=== PATIENT | female | born 1945 ===

== ENCOUNTER 2023-07-05 13:26 | Outpatient (RCR) | payer MEDICARE, SELFPAY | END 2023-07-05 23:59 | disposition home or self-care (01) | LOC: RPT 13:26 | PROVIDERS: ATTENDING PHYSICIAN Physician Assistant; FAMILY PHYSICIAN Family Medicine | DX: M54.42 Lumbago with sciatica, left side (principal); Z73.6 Limitation of activities due to disability | CPT/HCPCS: 97010; 97110; 97112; 97140; 97162 ==

== ENCOUNTER 2023-08-05 09:56 | Outpatient (RCR) | payer MEDICARE, SELFPAY | END 2023-08-05 23:59 | disposition home or self-care (01) | LOC: RPT 09:56 | PROVIDERS: ATTENDING PHYSICIAN Physician Assistant; FAMILY PHYSICIAN Family Medicine | DX: M54.42 Lumbago with sciatica, left side (principal); Z73.6 Limitation of activities due to disability | CPT/HCPCS: 97010; 97110; 97140 ==

== ENCOUNTER 2023-08-15 09:51 | Outpatient (RCR) | payer MEDICARE, SELFPAY | END 2023-08-15 13:07 | disposition home or self-care (01) | LOC: RPT 09:51 | PROVIDERS: ATTENDING PHYSICIAN Physician Assistant; FAMILY PHYSICIAN Family Medicine | DX: M54.42 Lumbago with sciatica, left side (principal); Z73.6 Limitation of activities due to disability | CPT/HCPCS: 97010; 97110 ==

== ENCOUNTER 2024-04-01 21:17 | Inpatient (IN) | payer MEDICARE, OTHER, SELFPAY ==
[2024-04-01 16:01] VITALS: BP 121/88
[2024-04-01 16:15] LABS: Hematocrit 40.4 % (37.0-47.0); Hemoglobin 13.6 g/dL (12.0-16.0); Mean Corp Hgb Conc. 33.7 g/dL (33.0-37.0); Mean Corpuscular Hgb 29.5 pg (27.0-31.0); Mean Corpuscular Volume 87.6 fL (81.0-99.0); Mean Platelet Volume 9.5 fL (7.4-10.4); Platelet Count 239 10^3/uL (130-400); Red Blood Cell Count 4.61 10^6/uL (4.20-5.40); Red Cell Dist. Width 12.2 % (11.5-14.5); White Blood Cell Count 15.4 10^3/uL (4.8-10.8)
[2024-04-01 16:27] LABS: ALT (SGPT) 39 U/L (0-35); AST (SGOT) 79 U/L (14-36); Albumin 4.8 g/dl (3.5-5.0); Alkaline Phosphatase 96 U/L (38-126); Blood Urea Nitrogen 18 mg/dl (7-17); Calcium 9.8 mg/dl (8.4-10.2); Carbon Dioxide 29 mmol/L (22-30); Chloride 101 mmol/L (98-107); Glucose 145 mg/dl (70-99); Potassium 3.9 mmol/L (3.5-5.1); Sodium 141 mmol/L (135-145); Total Bilirubin 0.8 mg/dl (0.2-1.3); Total Protein 7.9 g/dl (6.3-8.2); eGFR > 60.00
[2024-04-01 16:28] LABS: % Basophils 0.3 % (0-2); % Eosinophils 0.2 % (0-6); % Immature Granulocytes 0.5 % (0-0.5); % Lymphocytes 6.4 % (20.5-51.1); % Monocytes 7.1 % (1.7-9.3); % Neutrophils 85.5 % (42.2-75.2); Absolute Basophils 0.1 10^3/uL (0-0.2); Absolute Immature Granulocytes 0.1 10^3/uL (0-0.05); Absolute Monocytes 1.1 10^3/uL (0.1-0.6); Absolute Neutrophils 13.1 10^3/uL (1.4-6.5); Nucleated Red Blood Cells % 0 %
[2024-04-01 17:03] LABS: Lipase > 4000 U/L (23-300)
--- NOTE | 2024-04-01 17:32 | ED.GENMED ---
History of Present Illness
General
Chief Complaint: Abdominal Pain
Time Seen by Provider: 04/01/24 17:04
History of Present Illness
History of Present Illness:
78-year-old female presents to the emergency department for evaluation of sudden onset upper abdominal pain beginning earlier today associated with nausea and vomiting. Pain is rated as severe. No diarrhea. No recent fevers or chills. No history
of abdominal surgery. Denies use of NSAIDs or alcohol. History of diet-controlled diabetes
Past History
Past History
ED Past Medical History: NIDDM and Hypothyroidism
ED Past Surgical History: Orthopedic and Other
Social History
Tobacco: Non-smoker
Review of Systems
Review of Systems
Allergies reviewed?: Yes
All Other Systems: ROS reviewed and negative except as documented in HPI and ROS
Phy Exam
Physical Exam
Physical Exam:
GEN: Well appearing, NAD, WDWN
HEENT: Oral mucosa moist, no scleral icterus
Cardiac: Regular rate and rhythm
Lung: No respiratory distress, no tachypnea
Abdomen: Soft, severe diffuse upper abdominal tenderness, no rigidity
MSK: No gross deformity or injuries
Skin: Good color, no pallor or jaundice, no rashes
Neuro: AO x3, moves all extremities freely
Psych: Calm, cooperative
Course
Orders/Labs/Results
Orders:
Orders
04/01/24 16:06
Complete Blood Count/With Diff Urgent
Comprehensive Metabolic Panel Urgent
Lipase Urgent
04/01/24 17:31
CT Abd/Pel (IV only)-DH only Urgent
Comment:
Reason For Exam: pancreatitis
HYDROmorphone [Dilaudid] 0.5 mg IV NOW STA
Lactated Ringers [Lr] 1,000 ml IV BOLUS
Ondansetron Injectable [Zofran] 4 mg IV NOW STA
04/01/24 20:04
HYDROmorphone [Dilaudid] 0.5 mg IV NOW STA
04/01/24 20:47
Admit/Transfer Patient As Directed
Co-Sign Provider:
Level of Care: Inpatient admission
Assign to:: Telemetry
Physician / Group: Dov
Diagnosis: Acute Pancreatitis
Reason for Telemetry: Arrhythmia
Date to Stop Telemetry: 04/04/24
Time to Stop Telemetry: 11:00
Reason for Hospitalization: Acute Pancreatitis
Expected length of stay greater than two midnights?: Yes
ELOS- Estimated Length of Stay in days: 3
I certify the patient meets the requirements for IP care: Yes
US Abdomen Complete/Upper Urgent
Comment:
Reason For Exam: Pancreatitis, RUQ Pain
04/01/24 20:50
Code Status As Directed
Resuscitation Status: Full Code
PRN Pain Medication Management As Directed
May give lesser potent ordered pain med per pt: Yes
preference::
Protocol:: Medication orders for pain may be administered in a
manner that supports deferring to patient preference
when the pt is:
- Requesting an ordered lesser potent pain medication.
Least to most potent pain medications are defined
as: acetaminophen < NSAID < tramadol < opioids
(morphine, oxycodone, hydromorphone).
- Requesting a lesser dose of the same medication IF
ORDERED.
- Requesting a less intrusive route of administration
if both routes are prescribed by the provider (PO <
IV).
04/04/24 11:00
DC Protocol for Telemetry ONCE
Abnormal Lab Results
04/01/24
16:06
WBC 15.4 H 10^3/uL
(4.8-10.8)
Abs Immat Gran (auto) 0.1 H 10^3/uL
(0-0.05)
Absolute Neuts (auto) 13.1 H 10^3/uL
(1.4-6.5)
Absolute Lymphs (auto) 1.0 L 10^3/uL
(1.2-3.4)
Absolute Monos (auto) 1.1 H 10^3/uL
(0.1-0.6)
Neutrophils % 85.5 H %
(42.2-75.2)
Lymphocytes % 6.4 L %
(20.5-51.1)
BUN 18 H mg/dl
(7-17)
Creatinine 0.5 L mg/dL
(0.6-1.0)
Glucose 145 H mg/dl
(70-99)
AST 79 H U/L
(14-36)
ALT 39 H U/L
(0-35)
Lipase > 4000 H* U/L
(23-300)
04/01/24 16:06
04/01/24 16:06
Vital Signs
Initial and Last Documented VS:
Initial Vital Signs
Temp Pulse Resp BP Pulse Ox
97.6 F 98 16 121/88 98
04/01/24 16:01 04/01/24 16:01 04/01/24 16:01 04/01/24 16:01 04/01/24 16:01
Last Documented Vital Signs
Temp Pulse Resp BP Pulse Ox
97.6 F 108 18 125/56 97
04/01/24 16:01 04/01/24 20:39 04/01/24 20:39 04/01/24 19:00 04/01/24 20:39
MDM/Problems Addressed
MDM/Problems Addressed:
Patient found to have acute pancreatitis, denies alcohol use. Transaminases only marginally elevated, unclear if this could represent a gallstone pancreatitis. Will admit to the hospitalist service for further management
*Critical Care Note
Total Time (30-74mins, 75-104mins- exclusive of procedures): Not Applicable
ED Attending Note
-
Portions of this chart may have been created with voice recognition software.� Occasional wrong word or��sound alike� substitutions may have occurred due to the inherent limitations of voice recognition software.
Discharge Plan
Departure
Patient Disposition: Admit
Date of Disposition: 04/01/24
Time of Disposition: 20:10
Admit to: Med/Surg
Presentation/result/management discussed w/ accepting MD/DO: Hospitalist
Discharge Problem:
Acute pancreatitis
Interventions
Interventions:
*Risk Screen - Suicide Last Done: 04/01/24 16:01
*General Assessment Last Done: 04/01/24 16:01
*Neglect/Abuse Screening Last Done: 04/01/24 18:12
ED- Fall Risk Assessment Last Done: 04/01/24 18:16
*ED COVID-19 Vaccine History Last Done: 04/01/24 16:01
BG-Omezdh-Ctpsaayfoj Assessment Last Done: 04/01/24 18:13
[2024-04-01 17:54] VITALS: BP 159/75
[2024-04-01] MEDS: LR 1000 IV (18:08)
[2024-04-01] MEDS: ZOFRAN 4 MG IV (18:09)
[2024-04-01] MEDS: DILAUDID 0.5 MG IV ×2 (18:09→20:37)
[2024-04-01 18:12] VITALS: BMI 25.4
[2024-04-01 19:00] VITALS: BP 125/56
--- NOTE | 2024-04-01 20:54 | HPS.HSE ---
Addendum entered and electronically signed by Kieran Monae DO 04/02/24 00:17:
US Abdomen shows no evidence of acute cholecystitis, GB wall thickening, pericholecystic fluid, etc.
Observe off of abx. Continue treatment of acute pancreatitis as noted.
GI evaluation for additional recommendations.
Original Note:
Family Physician
-
Family Physician: Jose Angel Banks
Chief Complaint
-
Abd Pain, N/V
History of Present Illness
Patient is a 78y F with PMH significant for gastroparesis, DM and hypothyroidism who presents to ED complaining of abdominal pain and N/V. Patient states that she noted RUQ abdominal pain early this AM. This progressed throughout the day and
she developed N/V this afternoon x multiple episodes of non-bloody emesis. Patient states that pain is in the RUQ and radiates into the back / R flank. Patient notes that she had similar / mild symptoms about 2 days ago. She skipped dinner that
evening and felt improved by the next morning.
Patient reports long history of gastroparesis and has had prior issues with intermittent abdominal pain and nausea. She was evaluated extensively for possible biliary disease about one year ago with no significant positive findings at that time.
No recent medication changes.
No recent illness, fevers / chills, etc.
Medical History
Past Medical History
Past Medical History: Reports Other
Additional Past Medical History:
DM-II
Gastroparesis
Hypothyroidism
Breast Cancer s/p Surgery and XRT
Past Surgical History: Reports Other
Additional Past Surgical History:
Left Lumpectomy
Left TKA
Social History
Tobacco: Non-smoker
Alcohol: None
Drug: None
Family History
Family History: Not pertinent
Allergies / Home Medications
Allergies reflects when Allergies were last updated in [facility].
Home Medications with original date entered in [facility]
Allergy/Medication List:
Allergies
Allergy/AdvReac Type Severity Reaction Status Date / Time
No Known Allergies Allergy Verified 04/01/24 16:03
Home Medications
acetaminophen 500 mg tablet 1,000 mg PO DAILYPRN PRN mild pain 04/01/24
cholecalciferol (vitamin D3) 125 mcg (5,000 unit) tablet (Vitamin D3) 125 mcg PO DAILY 04/01/24
famotidine 20 mg tablet 40 mg PO DAILY 04/01/24
levothyroxine 50 mcg tablet (Synthroid) 50 mcg PO DAILY 04/01/24
metformin 500 mg tablet 500 mg PO BID 04/01/24
sennosides 8.6 mg tablet (senna) 25.8 mg PO HSPRN PRN constipation 04/01/24
therapeutic multivitamin 1 tab PO DAILY 04/01/24
Review of Systems
-
History Source: Patient
A 12 point ROS was completed and negative except as noted: Yes
Constitutional: Denies Fever or Chills
Respiratory: Denies Cough or Trouble Breathing
Cardiac: Denies Chest Pain or Palpitations
Abdomen/GI: Reports Abdominal Pain, Nausea and Vomiting; Denies Diarrhea or Bloody Stools
: Reports Flank Pain; Denies Dysuria or Frequency
Musculoskeletal: Denies Joint Pain or Edema
Neurological: Denies Dizzy or Headache
Psych: Denies Depression or Anxiety
Physical Exam
Vital Signs
Vital Signs
Temp Pulse Resp BP Pulse Ox
97.6 F 108 18 125/56 97
04/01/24 16:01 04/01/24 20:39 04/01/24 20:39 04/01/24 19:00 04/01/24 20:39
Physical Exam
General: Other (78y F in mild distress due to pain.)
HEENT: Moist mucous membranes and PERRLA
Respiratory: Clear and Other (Decreased bilaterally secondary to poor effort.); No Wheezes, Rales or Rhonchi
Cardiac: S1/S2 and Regular Rhythm; No Murmur
GI: Other (Tenderness, guarding across the upper abdomen. Pos BS. )
Musculoskeletal: No Clubbing, No Cyanosis and No Edema
Neuro: AO x 3
Laboratory Results
-
04/01/24 16:06
04/01/24 16:06
Laboratory Results
Total Bilirubin 0.8 mg/dl (0.2-1.3) 04/01/24 16:06
AST 79 U/L (14-36) H 04/01/24 16:06
ALT 39 U/L (0-35) H 04/01/24 16:06
Alkaline Phosphatase 96 U/L (38-126) 04/01/24 16:06
Lipase > 4000 U/L (23-300) H* 04/01/24 16:06
Impression/Plan
-
A/P: Patient is a 78y F with PMH significant for DM-II and gastroparesis who presents to ED for evaluation of abdominal pain with N/V.
Acute Pancreatitis
- Admit for further evaluation and treatment.
- Patient does not drink alcohol. No recent med changes. Suspect biliary source / stones / sludge / etc.
- Check US now and begin abx if any evidence of acute cholecystitis.
- NPO, IVFs, pain control, etc.
- Follow for clinical improvement and advance diet as tolerated.
- Depending on results of further work-up, may benefit from eventual cholecystectomy.
- Son notes that he would pursue this further at [facility] if necessary (where he works).
DM-II
Gastroparesis
- Stable. Hold PO metformin acutely.
- Follow glucose and cover with SSI as needed.
- Update A1C.
Hypothyroidism
- Stable. Continue current T4 replacement.
DVT Prophylaxis: SCDs
Code Status: Full
[2024-04-01 21:00] VITALS: BP 104/52
[2024-04-01 22:00] VITALS: BP 104/52
[2024-04-01 23:49] VITALS: BP 137/73
[2024-04-02] MEDS: ZOFRAN 4 MG IV (00:20)
[2024-04-02] MEDS: LR 1000 IV ×4 (00:20→19:45)
--- NOTE | 2024-04-02 00:32 | PTCARENOTE ---
Pt arrive to [facility] at 22:40 on a stretcher from the ED. Pt ambulated from the stretcher to the bed. Admission questions answered. Full head to toe assessed and pt transferred back to stretcher to go down to US. Pt arrived back at 2330. Pt oriented
to room and call lucas. Bed locked and in lowest position. IVF hung. Pt c/o nausea and zofran given. Care ongoing.
[2024-04-02 00:42] LABS: Glucose - Point of Care 162 mg/dl (70-99)
[2024-04-02] MEDS: NOVOLOG FLEXPEN-LOW RESISTANCE 1 UNITS SC (01:07)
[2024-04-02 03:46] VITALS: BP 107/55
[2024-04-02] MEDS: NOVOLOG FLEXPEN-LOW RESISTANCE SC ×4 (05:29→23:24)
[2024-04-02] MEDS: SYNTHROID 50 MCG PO (05:29)
[2024-04-02 05:30] LABS: Glucose - Point of Care 117 mg/dl (70-99)
[2024-04-02] MEDS: ULTRAM 25 MG PO ×2 (05:49→14:26)
--- NOTE | 2024-04-02 06:40 | CON.GI ---
Consultation
-
Date/Time Consultation Requested: 04/02/2024 00:17
Date/Time Consultation Performed: 04/02/2024 6:40 AM
Requesting Provider: Dr. Kieran Monae DO
Performing Provider: Dr. Nuno Mishra DO
Reason for Consultation: Acute Pancreatitis
Medical History
Chief Complaint / HPI
Chief Complaint: Abd pain, n/v
History of Present Illness:
Ms. Campbell is a 78 y.o female with past medical history of breast cancer (s/p surgery/XRT), hypothyroidism, DM, and gastroparesis who presented to the ED with upper abdominal pain and nausea/vomiting. Found to have acute pancreatitis for which GI has
been consulted for further evaluation and management.
Patient states she was in her USOH until yesterday morning when she developed sudden, sharp RUQ and epigastric abdominal pain. Continued to progress throughout the day with nausea and multiple episodes of non-bloody, non-bilious emesis. She called
her son around 2 PM (Biomedical Instrument Technician at [employer]) given her worsening symptoms. No other fevers, chills or other constitutional symptoms. Does note previous abdominal discomfort a few days prior with upper abdominal discomfort which eventually
self-resolved. Otherwise, denies any new medications, NSAIDs or alcohol use. Denies any prior or current smoking. In discussing with patient's son via telephone this AM, notes her mother was previously evaluated by GI at [facility] about a year an a
half ago for upper abdominal pain. Reportedly prior imaging and work-up was unrevealing including a (-) HIDA scan. Eventually, she underwent a GES which confirmed gastroparesis felt to be secondary to her diabetes and has been working with a
cinder crusher operator as she notes an intentional 10 lb weight loss over the past year and has been on Metformin for her DM II. Otherwise, no prior episodes of pancreatitis or family history of pancreatitis and/or pancreatic malignancy. Given her worsening
abdominal pain, she came to the ED for further evaluation.
In the ED, patient was afebrile and HD-stable. Labs notable for BUN [address] 0.5. LFTs with AST 79, ALT 39, ALP 96, and T Bili 0.8. Lipase > 4000s. CBC with WBC 15.4 with left shift, Hgb 13.6, and plts 239. CT Abd/pelvis w/ oral and IV contrast
revealed moderate acute pancreatitis without PD dilatation or other masses/calcifications along with mild gallbladder wall distention and a solid RLL pulmonary nodule. An US Abd was (-) for any evidence of acute cholecystitis, GB wall thickening, or
pericholecystic fluid. However, this did reveal a dilated CBD without any visualized stone or mass with CBD up to 10mm. She was treated with IVF and admitted to medicine.
Past Medical History
Past Medical History: Other (DM II, gastroparesis, hypothyroidism, breast cancer (s/p surgery and XRT))
Past Surgical History: Other (L Lumpectomy, L TKA)
Social History
Tobacco: Non-Smoker
Alcohol: None
Drug: None
Family History
Family History: Reviewed & Not Pertinent
Allergies / Home Medications
Allergy/AdvReac Type Severity Reaction Status Date / Time
No Known Allergies Allergy Verified 04/01/24 16:03
�Medication �Instructions �Recorded
acetaminophen 500 mg tablet 1,000 mg PO DAILYPRN PRN mild pain 04/01/24
cholecalciferol (vitamin D3) 125 125 mcg PO DAILY 04/01/24
mcg (5,000 unit) tablet (Vitamin
D3)
famotidine 20 mg tablet 40 mg PO DAILY 04/01/24
levothyroxine 50 mcg tablet 50 mcg PO DAILY 04/01/24
(Synthroid)
metformin 500 mg tablet 500 mg PO BID 04/01/24
sennosides 8.6 mg tablet (senna) 25.8 mg PO HSPRN PRN constipation 04/01/24
therapeutic multivitamin 1 tab PO DAILY 04/01/24
Review of Systems
-
All other systems: A 12 pt ROS was Negative except as stated above in HPI
Vital Signs
Temp Pulse Resp BP Pulse Ox
98.6 F 85 17 107/55 98
04/02/24 03:46 04/02/24 03:46 04/02/24 03:46 04/02/24 03:46 04/02/24 03:46
Physical Exam
Exam
General: Well Nourished, No Apparent Distress and Comfortable
HEENT: Anicteric and Moist Mucous Membranes
Respiratory: Non Labored Respirations
Cardiac: Regular Rhythm
GI: Soft, Non Distended and Tender (Mild to moderate TTP in the epigastric region with voluntary guarding, no involuntary guarding or rebound tenderness)
Skin: Warm
Neuro: AO x 3 and Nonfocal/Grossly Intact
Psych: Calm
Results
WBC 15.4 10^3/uL (4.8-10.8) H 04/01/24 16:06
Hgb 13.6 g/dL (12.0-16.0) 04/01/24 16:06
Hct 40.4 % (37.0-47.0) 04/01/24 16:06
MCV 87.6 fL (81.0-99.0) 04/01/24 16:06
Plt Count 239 10^3/uL (130-400) 04/01/24 16:06
Absolute Neuts (auto) 13.1 10^3/uL (1.4-6.5) H 04/01/24 16:06
Sodium 141 mmol/L (135-145) 04/01/24 16:06
Potassium 3.9 mmol/L (3.5-5.1) 04/01/24 16:06
Chloride 101 mmol/L (98-107) 04/01/24 16:06
Carbon Dioxide 29 mmol/L (22-30) 04/01/24 16:06
BUN 18 mg/dl (7-17) H 04/01/24 16:06
Creatinine 0.5 mg/dL (0.6-1.0) L 04/01/24 16:06
Calcium 9.8 mg/dl (8.4-10.2) 04/01/24 16:06
Total Bilirubin 0.8 mg/dl (0.2-1.3) 04/01/24 16:06
AST 79 U/L (14-36) H 04/01/24 16:06
ALT 39 U/L (0-35) H 04/01/24 16:06
Alkaline Phosphatase 96 U/L (38-126) 04/01/24 16:06
Lipase > 4000 U/L (23-300) H* 04/01/24 16:06
Assessment / Plan
-
Ms. Campbell is a 78 y.o female with past medical history of breast cancer (s/p surgery/XRT), hypothyroidism, DM, and gastroparesis who presented to the ED with upper abdominal pain and nausea/vomiting. Found to have acute pancreatitis for which GI has
been consulted for further evaluation and management.
#Acute, Mild Pancreatitis (first-episode)
#Extrahepatic Biliary Ductal Dilation
#Elevated Transaminases
#Hx of Gastroparesis
Impression: Patient presenting with RUQ and epigastric pain over the past 1-2 days along with NBNB emesis found to have acute pancreatitis with associated gallbladder wall thickening on CT imaging. No prior history of pancreatitis in the past. No
history of EtOH or other recently started or other offending medications. Calcium wnl. LFTs mildly elevated with mild elevations in transaminases and US revealing dilated CBD of up to 10 mm. No discrete cholelithiasis or sludge was visualized,
however given her mild elevations in LFTs (now normalized) and biliary ductal dilation on most recent US, suspicious for a passed stone and/or sludge. Etiology seems suspicious for gallstone and/or biliary pancreatitis given her presentation and
overall symptomatology. Would benefit from a lipid panel as well to r/o hypertriglyceridemia. Malignancy also needs to be excluded given her age > 40 y.o and first episode of pancreatitis. Would benefit from a MRI/MRCP given patient's biliary ductal
dilatation for further evaluation along with ongoing supportive care as below.
Recommendations:
- Keep NPO pending MRCP. Once obtained, may trial CLD and ADAT to low-fat diet
- IVF with LR for volume expansion over next 24 hrs
- Trend serial LFTs and T Bili q daily
- Ordered lipid panel with AM labs
- Obtain MRI/MRCP given biliary dilation seen on most recent US and previously elevated transaminases
- Miralax and senna to promote bowel function for prevention of ileus and OIC
- Pain control and IV anti-emetics PRN
- Rest of care per primary team
Discussed with patient's son (Jose Antonio Campbell) who is an Biomedical Instrument Technician at [employer]. Discussed with primary internal medicine team.
GI team will continue to follow.
Data Reviewed
-
Radiology: Image Personally Visualized and interpreted and Report Reviewed by me
CT Scan: Image Personally Visualized and interpreted and Report Reviewed by me
Ultrasound: Report Reviewed by me
-
-
Thank you for consultation and allowing me to participate in the patient's care. Please call the workers compensation specialist GI physician during the after hours with any questions or concerns.
[2024-04-02 06:44] LABS: Hematocrit 34.5 % (37.0-47.0); Hemoglobin 11.4 g/dL (12.0-16.0); Mean Corpuscular Hgb 29.4 pg (27.0-31.0); Mean Corpuscular Volume 88.9 fL (81.0-99.0); Mean Platelet Volume 10.4 fL (7.4-10.4); Platelet Count 205 10^3/uL (130-400); Red Blood Cell Count 3.88 10^6/uL (4.20-5.40); Red Cell Dist. Width 12.6 % (11.5-14.5); White Blood Cell Count 12.5 10^3/uL (4.8-10.8)
[2024-04-02 07:13] LABS: ALT (SGPT) 27 U/L (0-35); AST (SGOT) 32 U/L (14-36); Albumin 3.5 g/dl (3.5-5.0); Alkaline Phosphatase 64 U/L (38-126); Blood Urea Nitrogen 21 mg/dl (7-17); Calcium 8.7 mg/dl (8.4-10.2); Carbon Dioxide 29 mmol/L (22-30); Chloride 101 mmol/L (98-107); Direct Bilirubin 0.1 mg/dl (0.0-0.4); Estimated Creatinine Clearance 63 ml/min; Glucose 99 mg/dl (70-99); Sodium 139 mmol/L (135-145); Total Bilirubin 0.7 mg/dl (0.2-1.3); eGFR > 60.00
[2024-04-02 07:25] VITALS: BP 100/57
[2024-04-02 07:37] LABS: Lipase > 4000 U/L (23-300)
[2024-04-02] MEDS: NSS (PRESERVATIVE FREE) 10 ML IV (08:09)
[2024-04-02] MEDS: PROTONIX IV 40 MG IV (08:09)
[2024-04-02 08:32] LABS: Glycohemoglobin (HgbA1c) 6.6 % (4.0-5.6)
[2024-04-02 10:49] VITALS: BP 107/57
[2024-04-02 12:07] LABS: Glucose - Point of Care 89 mg/dl (70-99)
--- NOTE | 2024-04-02 14:54 | W.PN.HOSP.TC ---
Today's Communication/Plan
-
NPO - ADAT
MRCP
IVF
Assessment / Plan
Assessment / Plan
General: Other (78y F in mild distress due to pain.)
HEENT: Moist mucous membranes and PERRLA
Respiratory: Clear and Other (Decreased bilaterally secondary to poor effort.); No Wheezes, Rales or Rhonchi
Cardiac: S1/S2 and Regular Rhythm; No Murmur
GI: Other (Tenderness, guarding across the upper abdomen. Pos BS. )
Musculoskeletal: No Clubbing, No Cyanosis and No Edema
Neuro: AO x 3
A/P: Patient is a 78y F with PMH significant for DM-II and gastroparesis who presents to ED for evaluation of abdominal pain with N/V.
Acute Pancreatitis
- Admit for further evaluation and treatment.
- Patient does not drink alcohol. No recent med changes. Suspect biliary source / stones / sludge / etc.
- US: dilated CBD - F/u with MRCP
-ADv to CLD
-Pain control, IVF
- Follow for clinical improvement and advance diet as tolerated.
- Depending on results of further work-up, may benefit from eventual cholecystectomy.
- Son notes that he would pursue this further at [facility] if necessary (where he works).
DM-II
Gastroparesis
- Stable. Hold PO metformin acutely.
- Follow glucose and cover with SSI as needed.
- Update A1C.�6.6
Leukocytosis
� More than likely stress related
� Continue to monitor fever curve, white count
Hypothyroidism
- Stable. Continue current T4 replacement.
Solid right lower lobe pulmonary nodule.
-f/u outpt
DVT Prophylaxis: HSQ
Code Status: Full
Total time spent on today's encounter was 51 minutes which included time spent in counseling the patient/family regarding diagnosis and treatment plan as listed above, goals of care, and symptom management. Case was discussed with nursing staff,
specialists, and care coordinators/case management. All labs and imaging personally reviewed by me. Remainder the time spent in detailed review of previous records, lab data, imaging, and other medical provider documentation.
Anticipated Discharge: 24 - 48 hours
Subjective/Interval History
-
Date of Service: April 02, 2024
pain improved
Objective Data
-
Labs:
Laboratory Results
04/02/24
05:22
WBC 12.5 H
Hgb 11.4 L
Hct 34.5 L
Plt Count 205
Sodium 139
Potassium 4.0
Chloride 101
Carbon Dioxide 29
BUN 21 H
Creatinine 0.5 L
Glucose 99
Calcium 8.7
Total Bilirubin 0.7
AST 32
ALT 27
Alkaline Phosphatase 64
Vital Signs:
Vital Signs
Temp Pulse Resp BP Pulse Ox
98.0 F 79 18 107/57 100
04/02/24 10:49 04/02/24 10:49 04/02/24 10:49 04/02/24 10:49 04/02/24 10:49
I&O
04/01/24 04/02/24 04/03/24
06:59 06:59 06:59
Intake Total 750 / 750 60 / 60
Balance 750 / 750 60 / 60
Review of Systems
-
History Source: Patient
All other systems: Not reviewed unless documented
Data Reviewed
-
CT Scan: Report Reviewed by me
Ultrasound: Report Reviewed by me
Labs: Labs Reviewed by me
[2024-04-02 15:07] VITALS: BP 118/65
--- NOTE | 2024-04-02 15:54 | CM ---
manager interventional reviewed patient's chart and met with patient and family at bedside, patient lives with spouse in a 2 story home with 4 steps to enter, patient is independent with adl's and ambulation.
PCP: Dr Jose Angel Banks
Pharmacy: [facility] in [place]
Plan; Home with spouse when stable, no needs.
[2024-04-02] MEDS: HEPARIN 5000 UNITS SC ×2 (16:48→23:19)
[2024-04-02 17:24] LABS: Glucose - Point of Care 83 mg/dl (70-99)
[2024-04-02 19:05] VITALS: BP 137/72
[2024-04-02] MEDS: SENOKOT-S 1 TABLET PO (19:49)
[2024-04-02 23:11] VITALS: BP 138/66
[2024-04-02] MEDS: TYLENOL 650 MG PO (23:19)
[2024-04-02 23:24] LABS: Glucose - Point of Care 79 mg/dl (70-99)
[2024-04-03] MEDS: LR 1000 IV ×3 (01:00→14:43)
[2024-04-03 02:55] VITALS: BP 116/62
[2024-04-03] MEDS: SYNTHROID 50 MCG PO (05:14)
[2024-04-03 05:18] LABS: Glucose - Point of Care 66 mg/dl (70-99)
[2024-04-03] MEDS: DEXTROSE 50% SYRINGE 12.5 GRAMS IV (05:21)
[2024-04-03] MEDS: NOVOLOG FLEXPEN-LOW RESISTANCE SC ×3 (05:37→17:49)
[2024-04-03 05:45] LABS: Glucose - Point of Care 114 mg/dl (70-99)
[2024-04-03 07:36] VITALS: BP 151/77
[2024-04-03 07:44] LABS: ALT (SGPT) 19 U/L (0-35); AST (SGOT) 25 U/L (14-36); Albumin 3.1 g/dl (3.5-5.0); Alkaline Phosphatase 67 U/L (38-126); Blood Urea Nitrogen 11 mg/dl (7-17); Calcium 8.6 mg/dl (8.4-10.2); Carbon Dioxide 27 mmol/L (22-30); Chloride 104 mmol/L (98-107); Estimated Creatinine Clearance 63 ml/min; Glucose 62 mg/dl (70-99); HDL Cholesterol 48 mg/dl; LDL Cholesterol, Calculated 87 mg/dl; Sodium 138 mmol/L (135-145); Total Bilirubin 0.7 mg/dl (0.2-1.3); Total Cholesterol 159 mg/dl (50-199); Total Protein 5.5 g/dl (6.3-8.2); Triglyceride 124 mg/dl (10-149); Very Low Density Lipoprotein 24 mg/dl (0-30); eGFR > 60.00
[2024-04-03 07:55] LABS: Hematocrit 32.1 % (37.0-47.0); Hemoglobin 10.7 g/dL (12.0-16.0); Mean Corp Hgb Conc. 33.3 g/dL (33.0-37.0); Mean Corpuscular Hgb 29.2 pg (27.0-31.0); Mean Corpuscular Volume 87.5 fL (81.0-99.0); Mean Platelet Volume 11.3 fL (7.4-10.4); Platelet Count 156 10^3/uL (130-400); Red Blood Cell Count 3.67 10^6/uL (4.20-5.40); Red Cell Dist. Width 12.5 % (11.5-14.5); White Blood Cell Count 9.8 10^3/uL (4.8-10.8)
--- NOTE | 2024-04-03 08:43 | W.PN.GI.CBS2 ---
Today's Communication / Plan
-
Await MRI/MRCP, if reassuring and (-) for stone/sludge may have CLD and ADAT to low-fat diet. Low suspicion at this time given her normalized LFTs and resolved abdominal pain. See rest of care as outlined below.
Assessment / Plan
-
Ms. Campbell is a 78 y.o female with past medical history of breast cancer (s/p surgery/XRT), hypothyroidism, DM, and gastroparesis who presented to the ED with upper abdominal pain and nausea/vomiting. Found to have acute pancreatitis for which GI has
been consulted for further evaluation and management.
#Acute, Mild Pancreatitis (first-episode)
#Extrahepatic Biliary Ductal Dilation
#Elevated Transaminases
#Hx of Gastroparesis
Impression: Patient presenting with RUQ and epigastric pain over the past 1-2 days along with NBNB emesis found to have acute pancreatitis with associated gallbladder wall thickening on CT imaging. No prior history of pancreatitis in the past. No
history of EtOH or other recently started or other offending medications. Calcium wnl. LFTs mildly elevated with mild elevations in transaminases and US revealing dilated CBD of up to 10 mm. No discrete cholelithiasis or sludge was visualized,
however given her mild elevations in LFTs (now normalized) and biliary ductal dilation on most recent US, suspicious for a passed stone and/or sludge. Etiology seems suspicious for gallstone and/or biliary pancreatitis given her presentation and
overall symptomatology. Would benefit from a lipid panel as well to r/o hypertriglyceridemia. Malignancy also needs to be excluded given her age > 40 y.o and first episode of pancreatitis. Would benefit from a MRI/MRCP given patient's biliary ductal
dilatation for further evaluation along with ongoing supportive care as below.
Recommendations:
- Keep NPO pending MRCP. Once obtained, may trial CLD and ADAT to low-fat diet
- IVF with LR for volume expansion over next 24-48 hrs
- Trend serial LFTs and T Bili q daily- now normalized
- Lipid panel r/o hyerptriglyceridemia (TGs wnl 124)
- Ordered MRI/MRCP WWO contrast given biliary dilation seen on most recent US and previously elevated transaminases
- Miralax and senna to promote bowel function for prevention of ileus and OIC
- Pain control and IV anti-emetics PRN
- Rest of care per primary team
Discussed with primary internal medicine team this AM. GI team will continue to follow.
Subjective
Subjective
Date of Service: April 03, 2024
- No acute events overnight
- Repeat LFTs normalized
Feeling better early this AM, admits near resolution of previous abdominal pain and without any nausea/vomiting. Still awaiting MRI/MRCP. No other fevers or chills.
Objective
Data Reviewed
Laboratory Data:
Laboratory Results
04/03/24 05:17
04/03/24 05:17
Laboratory Results
Total Bilirubin 0.7 mg/dl (0.2-1.3) 04/03/24 05:17
AST 25 U/L (14-36) 04/03/24 05:17
ALT 19 U/L (0-35) 04/03/24 05:17
Alkaline Phosphatase 67 U/L (38-126) 04/03/24 05:17
Lipase > 4000 U/L (23-300) H* 04/02/24 05:22
Vital Signs and I&O:
Vital Signs
Temp Pulse Resp BP Pulse Ox
97.8 F 78 16 151/77 97
04/03/24 07:36 04/03/24 07:36 04/03/24 07:36 04/03/24 07:36 04/03/24 07:36
I&O
04/02/24 04/03/24 04/04/24
06:59 06:59 06:59
Intake Total 750 / 750 4755 / 4755
Balance 750 / 750 4755 / 4755
Physical Exam
Physical Exam
HEENT: Anicteric and Moist mucous membranes
Cardiology: Normal Sinus Rhythm
Pulmonary: Clear
GI: Soft, Non Distended and Non Tender
Extremities: No Edema
Neuro: Non Focal
[2024-04-03] MEDS: NSS (PRESERVATIVE FREE) 10 ML IV (08:58)
[2024-04-03] MEDS: PROTONIX IV 40 MG IV (08:58)
[2024-04-03] MEDS: HEPARIN 5000 UNITS SC ×3 (08:58→23:30)
[2024-04-03] MEDS: SENOKOT-S 1 TABLET PO (08:59)
[2024-04-03] MEDS: XANAX 0.25 MG PO (10:17)
[2024-04-03 12:44] LABS: Glucose - Point of Care 74 mg/dl (70-99)
[2024-04-03 12:45] VITALS: BP 133/80
--- NOTE | 2024-04-03 14:15 | W.PN.HOSP.TC ---
Today's Communication/Plan
-
MRCP, can adv to CLD if unremarkable
LR
Assessment / Plan
Assessment / Plan
General: Other (78y F in mild distress due to pain.)
HEENT: Moist mucous membranes and PERRLA
Respiratory: Clear and Other (Decreased bilaterally secondary to poor effort.); No Wheezes, Rales or Rhonchi
Cardiac: S1/S2 and Regular Rhythm; No Murmur
GI: Other (Tenderness, guarding across the upper abdomen. Pos BS. )
Musculoskeletal: No Clubbing, No Cyanosis and No Edema
Neuro: AO x 3
A/P: Patient is a 78y F with PMH significant for DM-II and gastroparesis who presents to ED for evaluation of abdominal pain with N/V.
Acute Pancreatitis
Transaminitis
- Admit for further evaluation and treatment.
- Patient does not drink alcohol. No recent med changes. Suspect biliary source / stones / sludge / etc.
- US: dilated CBD - F/u with MRCP
-ADv to CLD once MRCP performed
-Pain control, IVF
- Follow for clinical improvement and advance diet as tolerated.
- Depending on results of further work-up, may benefit from eventual cholecystectomy.
- Son notes that he would pursue this further at [facility] if necessary (where he works).
DM-II
Gastroparesis
- Stable. Hold PO metformin acutely.
- Follow glucose and cover with SSI as needed.
- Update A1C.�6.6
Leukocytosis
� More than likely stress related
� Continue to monitor fever curve, white count
-trending down
Hypothyroidism
- Stable. Continue current T4 replacement.
Solid right lower lobe pulmonary nodule.
-f/u outpt
DVT Prophylaxis: HSQ
Code Status: Full
Total time spent on today's encounter was 50 minutes which included time spent in counseling the patient/family regarding diagnosis and treatment plan as listed above, goals of care, and symptom management. Case was discussed with nursing staff,
specialists, and care coordinators/case management. All labs and imaging personally reviewed by me. Remainder the time spent in detailed review of previous records, lab data, imaging, and other medical provider documentation.
Anticipated Discharge: Within 24 hours
Subjective/Interval History
-
Date of Service: April 03, 2024
No acute events, pending MRCP
Objective Data
-
Labs:
Laboratory Results
04/03/24
05:17
WBC 9.8
Hgb 10.7 L
Hct 32.1 L
Plt Count 156 D
Sodium 138
Potassium 4.0
Chloride 104
Carbon Dioxide 27
BUN 11
Creatinine 0.5 L
Glucose 62 L
Calcium 8.6
Total Bilirubin 0.7
AST 25
ALT 19
Alkaline Phosphatase 67
Vital Signs:
Vital Signs
Temp Pulse Resp BP Pulse Ox
97.8 F 84 16 133/80 99
04/03/24 12:45 04/03/24 12:45 04/03/24 12:45 04/03/24 12:45 04/03/24 12:45
I&O
04/02/24 04/03/24 04/04/24
06:59 06:59 06:59
Intake Total 750 / 750 4755 / 4755
Balance 750 / 750 4755 / 4755
Review of Systems
-
History Source: Patient
All other systems: Not reviewed unless documented
Data Reviewed
-
CT Scan: Report Reviewed by me
Ultrasound: Report Reviewed by me
Labs: Labs Reviewed by me
[2024-04-03] MEDS: LR IV (14:42)
[2024-04-03 15:19] VITALS: BP 156/87
--- NOTE | 2024-04-03 16:06 | CM ---
Reviewed the chart notes. CM continues to be available to patient/family and is monitoring medical plan for needs at discharge.
Plan: Discharge to home when medically stable. No needs anticipated.
[2024-04-03 17:50] LABS: Glucose - Point of Care 68 mg/dl (70-99)
[2024-04-03 18:17] LABS: Glucose - Point of Care 67 mg/dl (70-99)
[2024-04-03 18:36] LABS: Glucose - Point of Care 96 mg/dl (70-99)
[2024-04-03 20:03] LABS: Glucose - Point of Care 154 mg/dl (70-99)
[2024-04-03] MEDS: SENOKOT-S PO (21:44)
[2024-04-03] MEDS: ULTRAM 25 MG PO (21:47)
[2024-04-03 22:46] LABS: Glucose - Point of Care 108 mg/dl (70-99)
[2024-04-03 23:32] VITALS: BP 158/81
[2024-04-04] MEDS: LR 1000 IV (02:37)
[2024-04-04 02:59] LABS: Glucose - Point of Care 105 mg/dl (70-99)
[2024-04-04] MEDS: SYNTHROID 50 MCG PO (05:22)
[2024-04-04 05:58] LABS: Hematocrit 33.5 % (37.0-47.0); Hemoglobin 11.4 g/dL (12.0-16.0); Mean Corpuscular Hgb 29.6 pg (27.0-31.0); Mean Platelet Volume 10.8 fL (7.4-10.4); Platelet Count 188 10^3/uL (130-400); Red Blood Cell Count 3.85 10^6/uL (4.20-5.40); Red Cell Dist. Width 12.1 % (11.5-14.5); White Blood Cell Count 8.7 10^3/uL (4.8-10.8)
[2024-04-04 06:37] LABS: ALT (SGPT) 16 U/L (0-35); AST (SGOT) 21 U/L (14-36); Albumin 3.4 g/dl (3.5-5.0); Alkaline Phosphatase 80 U/L (38-126); Blood Urea Nitrogen 6 mg/dl (7-17); Calcium 9.1 mg/dl (8.4-10.2); Carbon Dioxide 23 mmol/L (22-30); Chloride 102 mmol/L (98-107); Estimated Creatinine Clearance 63 ml/min; Glucose 99 mg/dl (70-99); Potassium 3.2 mmol/L (3.5-5.1); Sodium 136 mmol/L (135-145); Total Bilirubin 0.7 mg/dl (0.2-1.3); Total Protein 6.1 g/dl (6.3-8.2); eGFR > 60.00
[2024-04-04 07:28] LABS: Glucose - Point of Care 94 mg/dl (70-99)
[2024-04-04 07:30] VITALS: BP 144/82
[2024-04-04] MEDS: NSS (PRESERVATIVE FREE) 10 ML IV (08:34)
[2024-04-04] MEDS: PROTONIX IV 40 MG IV (08:34)
[2024-04-04] MEDS: SENOKOT-S PO (08:34)
[2024-04-04] MEDS: HEPARIN 5000 UNITS SC ×3 (08:34→23:09)
--- NOTE | 2024-04-04 08:58 | W.PN.GI.CBS2 ---
Today's Communication / Plan
-
Discussed recent MRCP findings, suspect biliary pancreatitis given sludge in her GB. No evidence of retained stone/sludge within CBD. Doubt diverticulitis given her symptoms and more consistent with reactive thickening/changes secondary to her
pancreatitis. Previously mildly elevated LFTs have now normalized and without any concern for obstruction given her repeat normal LFTs and resolved abdominal pain. Continue ongoing supportive care with advancement of diet. She follows closely with
[facility] and would recommend close follow-up as patient would benefit from an EUS. See rest of care as outlined below. GI will sign-off, please recontact with any questions or concerns.
Assessment / Plan
-
Ms. Campbell is a 78 y.o female with past medical history of breast cancer (s/p surgery/XRT), hypothyroidism, DM, and gastroparesis who presented to the ED with upper abdominal pain and nausea/vomiting. Found to have acute pancreatitis for which GI has
been consulted for further evaluation and management.
#Acute, Mild Pancreatitis (first-episode)
#Extrahepatic Biliary Ductal Dilation
#Elevated Transaminases
#Hx of Gastroparesis
Impression: Patient presenting with RUQ and epigastric pain over the past 1-2 days along with NBNB emesis found to have acute pancreatitis with associated gallbladder wall thickening on CT imaging. No prior history of pancreatitis in the past. No
history of EtOH or other recently started or other offending medications. Calcium wnl. LFTs mildly elevated with mild elevations in transaminases and US revealing dilated CBD of up to 10 mm. No discrete cholelithiasis or sludge was visualized,
however given her mild elevations in LFTs (now normalized) and biliary ductal dilation on most recent US, suspicious for a passed stone and/or sludge. Etiology seems suspicious for gallstone and/or biliary pancreatitis given her presentation and
overall symptomatology. Would benefit from a lipid panel as well to r/o hypertriglyceridemia. Malignancy also needs to be excluded given her age > 41 y.o and first episode of pancreatitis.
S/p MRI/MRCP 04/04/2024: Acute interstitial edematous pancreatitis, no MRI evidence of any pancreatic necrosis or peripancreatic fluid collection, moderate extrahepatic biliary ductal dilatation without any evidence of choledocholithiasis, mild GB
sludge and distension, enlarged 2 cm duodenal diverticulum with reactive fluid secondary to pancreatitis, mild diffuse hepatic steatosis, small HH
Suspect her episode of pancreatitis likely secondary to biliary/gallstone given her previous elevated LFTs and biliary ductal dilatation seen on MRCP. Patient's LFT have now normalized and symptoms continuing to improve. Clinically, patient is
without any symptoms to suggest duodenal diverticulitis, likely from surrounding reactive changes from her underlying pancreatitis. She would benefit from an EUS as an outpatient for further evaluation given the suspicion for passage of sludge
resulting in her presentation. Otherwise, would continue ongoing supportive care as below.
Recommendations:
- ADAT to low-fat diet
- Trend serial LFTs and T Bili q daily- now normalized
- Lipid panel r/o hyerptriglyceridemia (TGs wnl 124)
- Defer abx at this time as not c/w duodenal diverticulitis, likely reactive changes due to pancreatitis
- Would benefit from an EUS as an outpatient with her primary Provider Relations Rep as she is known well to [facility] as likely biliary pancreatitis
- May benefit from a CCY eventually, but would defer this at this time as MRCP (-) stone/sludge within her CBD
- Miralax and senna to promote bowel function for prevention of ileus and OIC
- Pain control and IV anti-emetics PRN
- Rest of care per primary team
Unable to reach patient' son, Jose Antonio, this AM (at [phone]).
Discussed with primary internal medicine team. GI team will sign-off, please recontact with any questions or concerns.
Subjective
Subjective
Date of Service: April 04, 2024
- S/p MRI/MRCP 04/04/2024: Acute interstitial edematous pancreatitis, no MRI evidence of any pancreatic necrosis or peripancreatic fluid collection, moderate extrahepatic biliary ductal dilatation without any evidence of choledocholithiasis, mild GB
sludge and distension, enlarged 2 cm duodenal diverticulum with reactive fluid secondary to pancreatitis, mild diffuse hepatic steatosis, small HH
- Otherwise no acute events overnight
Reports feeling well, tolerating CLD without any difficulty. No further nausea/vomiting and without any further abdominal pain. Hoping for more solid food. Discussed results of recent MRI/MRCP and still suspect biliary pancreatitis from likely
passage of sludge. Attempt to reach her son, Jose Antonio, this AM (at [phone]) but unable to reach him. Otherwise, no other fevers, chills, night sweats or other constitutional symptoms. Having bowel function and passing flatus.
Objective
Data Reviewed
Laboratory Data:
Laboratory Results
04/04/24 05:08
04/04/24 05:08
Laboratory Results
Total Bilirubin 0.7 mg/dl (0.2-1.3) 04/04/24 05:08
AST 21 U/L (14-36) 04/04/24 05:08
ALT 16 U/L (0-35) 04/04/24 05:08
Alkaline Phosphatase 80 U/L (38-126) 04/04/24 05:08
Lipase > 4000 U/L (23-300) H* 04/02/24 05:22
Vital Signs and I&O:
Vital Signs
Temp Pulse Resp BP Pulse Ox
98.5 F 83 16 144/82 98
04/04/24 07:30 04/04/24 07:30 04/04/24 07:30 04/04/24 07:30 04/04/24 07:30
I&O
04/03/24 04/04/24 04/05/24
06:59 06:59 06:59
Intake Total 4755 / 4755 3880 / 3880
Balance 4755 / 4755 3880 / 3880
Physical Exam
Physical Exam
HEENT: Anicteric and Moist mucous membranes
Cardiology: Normal Sinus Rhythm
Pulmonary: Clear
GI: Soft, Non Distended and Non Tender
Extremities: No Edema
Neuro: Non Focal
[2024-04-04] MEDS: LR IV ×3 (10:45→22:10)
[2024-04-04] MEDS: KCL ELIXIR 40 MEQ PO (10:45)
[2024-04-04 12:00] LABS: Glucose - Point of Care 131 mg/dl (70-99)
--- NOTE | 2024-04-04 12:32 | W.PN.HOSP.TC ---
Today's Communication/Plan
-
LFD
bm regimen
f/u lfts outpt
hold metformin
f/u pcp and GI outpt
Assessment / Plan
Assessment / Plan
General: Other (78y F in mild distress due to pain.)
HEENT: Moist mucous membranes and PERRLA
Respiratory: Clear and Other (Decreased bilaterally secondary to poor effort.); No Wheezes, Rales or Rhonchi
Cardiac: S1/S2 and Regular Rhythm; No Murmur
GI: Other (Tenderness, guarding across the upper abdomen. Pos BS. )
Musculoskeletal: No Clubbing, No Cyanosis and No Edema
Neuro: AO x 3
A/P: Patient is a 78y F with PMH significant for DM-II and gastroparesis who presents to ED for evaluation of abdominal pain with N/V.
Acute Pancreatitis
Transaminitis
- Admit for further evaluation and treatment.
- Patient does not drink alcohol. No recent med changes. Suspect biliary source / stones / sludge / etc that have passed.
- US: dilated CBD
-MRCP: Acute interstitial edematous pancreatitis, no MRI evidence of any pancreatic necrosis or peripancreatic fluid collection, moderate extrahepatic biliary ductal dilatation without any evidence of choledocholithiasis, mild GB sludge and
distension, enlarged 2 cm duodenal diverticulum with reactive fluid secondary to pancreatitis, mild diffuse hepatic steatosis, small HH
-Adv to LFD today, monitor response - if tolerates can dc
-Defer abx, improving without abx. likely reactive.
-Benefit from EUS - can be done outpatient
-May benefit from CCY - defer to Primary GI
- BM regimen
-monitor LFTs outpt
DM-II
Gastroparesis
- Stable. Hold PO metformin acutely. - Can restart when cleared by GI outpt
- Follow glucose and cover with SSI as needed.
- Update A1C.�6.6
Leukocytosis
� More than likely stress related
� Continue to monitor fever curve, white count
-trending down
Hypothyroidism
- Stable. Continue current T4 replacement.
#Hypokalemia
-monitor and replete
Solid right lower lobe pulmonary nodule.
-f/u outpt
DVT Prophylaxis: HSQ
Code Status: Full
More than 30 minutes spent in discharge including
Final examination of the patient
Summarizing hospital stay
Instructions for continuing care to all relevant caregivers
Preparation of discharge records, prescriptions, and referral forms
Total time spent (36 in minutes):
Anticipated Discharge: Today
Subjective/Interval History
-
Date of Service: April 04, 2024
feeling better, adv to LFD
Objective Data
-
Labs:
Laboratory Results
04/04/24
05:08
WBC 8.7
Hgb 11.4 L
Hct 33.5 L
Plt Count 188 D
Sodium 136
Potassium 3.2 L
Chloride 102
Carbon Dioxide 23
BUN 6 L
Creatinine 0.5 L
Glucose 99
Calcium 9.1
Total Bilirubin 0.7
AST 21
ALT 16
Alkaline Phosphatase 80
Vital Signs:
Vital Signs
Temp Pulse Resp BP Pulse Ox
98.5 F 83 16 144/82 98
04/04/24 07:30 04/04/24 07:30 04/04/24 07:30 04/04/24 07:30 04/04/24 07:30
I&O
04/03/24 04/04/24 04/05/24
06:59 06:59 06:59
Intake Total 9845 / 4755 3880 / 3880 300 / 300
Balance 4755 / 4755 3880 / 3880 300 / 300
Review of Systems
-
History Source: Patient
All other systems: Not reviewed unless documented
Data Reviewed
-
CT Scan: Report Reviewed by me
Ultrasound: Report Reviewed by me
Labs: Labs Reviewed by me
--- NOTE | 2024-04-04 12:38 | W.DS.TRANS ---
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
-
Discharge Instructions:
Discharge Diagnosis/Procedures #Acute, Mild Pancreatitis (first-episode)
#Extrahepatic Biliary Ductal Dilation
#Elevated Transaminases
#Hx of Gastroparesis
Diet Low Fat,Diabetic, Carb Controlled
Activity As tolerated
Blood Work Trend LFTs outpatient
Others Tests -Would benefit from an EUS as an outpatient with
her primary .Net Programmer as she is known
well to [facility] as likely biliary
pancreatitis
-May benefit from a CCY eventually, but would
defer this at this time as MRCP (-) stone/sludge
within her CBD
Instructions:
Stand-Alone Forms:
Changes to Home Medications: Yes
Discharge Medications:
DC Medications w/original date entered in [employer]
cholecalciferol (vitamin D3) 125 mcg (5,000 unit) tablet (Vitamin D3) 125 mcg PO DAILY Supplement 04/01/24
famotidine 20 mg tablet 40 mg PO DAILY Gastrointestinal Issue 04/01/24
levothyroxine 50 mcg tablet (Synthroid) 50 mcg PO DAILY Thyroid 04/01/24
metformin 500 mg tablet 500 mg PO BID Diabetes 04/01/24
therapeutic multivitamin 1 tab PO DAILY Supplement 04/01/24
acetaminophen 325 mg tablet 650 mg (2 x 325 mg) PO Q4HPRN PRN Mild Pain / Temp > 101 #0 tabs 04/04/24
polyethylene glycol 3350 17 gram oral powder packet 17 g PO DAILY #100 ea 04/04/24
sennosides 8.6 mg-docusate sodium 50 mg tablet 1 tab PO BID 30 days #60 tabs 04/04/24
Home Medication Changes
acetaminophen 325 mg tablet 650 mg (2 x 325 mg) PO Q4HPRN PRN Mild Pain / Temp > 101 #0 tabs 04/04/24
polyethylene glycol 3350 17 gram oral powder packet 17 g PO DAILY #100 ea 04/04/24
sennosides 8.6 mg-docusate sodium 50 mg tablet 1 tab PO BID 30 days #60 tabs 04/04/24
Pending Results: No
--- NOTE | 2024-04-04 12:42 | CM ---
Reviewed the chart notes and spoke with the patient at the bedside. IMM reviewed. The patient is for discharge to home today. Patient's spouse at bedside will provide transportation home.
Plan: Discharge to home today.
[2024-04-04] MEDS: ULTRAM 25 MG PO (15:09)
[2024-04-04 15:45] VITALS: BP 148/82
[2024-04-04 16:06] LABS: Glucose - Point of Care 197 mg/dl (70-99)
[2024-04-04] MEDS: SENOKOT-S 1 TABLET PO (20:53)
[2024-04-04 21:52] LABS: Glucose - Point of Care 115 mg/dl (70-99)
[2024-04-04 23:27] VITALS: BP 153/73
[2024-04-05 05:55] LABS: Hematocrit 33.4 % (37.0-47.0); Hemoglobin 11.5 g/dL (12.0-16.0); Mean Corp Hgb Conc. 34.4 g/dL (33.0-37.0); Mean Corpuscular Hgb 29.6 pg (27.0-31.0); Mean Corpuscular Volume 86.1 fL (81.0-99.0); Platelet Count 197 10^3/uL (130-400); Red Blood Cell Count 3.88 10^6/uL (4.20-5.40); Red Cell Dist. Width 12.3 % (11.5-14.5)
[2024-04-05] MEDS: SYNTHROID 50 MCG PO (06:15)
[2024-04-05 06:19] LABS: ALT (SGPT) 14 U/L (0-35); AST (SGOT) 19 U/L (14-36); Albumin 3.3 g/dl (3.5-5.0); Alkaline Phosphatase 72 U/L (38-126); Blood Urea Nitrogen 7 mg/dl (7-17); Calcium 8.7 mg/dl (8.4-10.2); Carbon Dioxide 26 mmol/L (22-30); Chloride 103 mmol/L (98-107); Estimated Creatinine Clearance 63 ml/min; Glucose 123 mg/dl (70-99); Potassium 3.7 mmol/L (3.5-5.1); Sodium 137 mmol/L (135-145); Total Bilirubin 0.6 mg/dl (0.2-1.3); eGFR > 60.00
[2024-04-05 07:25] VITALS: BP 153/86
[2024-04-05 07:28] LABS: Glucose - Point of Care 124 mg/dl (70-99)
[2024-04-05] MEDS: HEPARIN 5000 UNITS SC (09:11)
[2024-04-05] MEDS: NSS (PRESERVATIVE FREE) 10 ML IV (09:13)
[2024-04-05] MEDS: SENOKOT-S 1 TABLET PO (09:13)
[2024-04-05] MEDS: PROTONIX IV 40 MG IV (09:14)
[2024-04-05 11:51] LABS: Glucose - Point of Care 218 mg/dl (70-99)
--- NOTE | 2024-04-05 12:13 | W.PN.HOSP.TC ---
Today's Communication/Plan
-
LFD
bm regimen
f/u lfts outpt
hold metformin
f/u pcp and GI outpt
Assessment / Plan
Assessment / Plan
General: Other (78y F in mild distress due to pain.)
HEENT: Moist mucous membranes and PERRLA
Respiratory: Clear and Other (Decreased bilaterally secondary to poor effort.); No Wheezes, Rales or Rhonchi
Cardiac: S1/S2 and Regular Rhythm; No Murmur
GI: Other (Tenderness, guarding across the upper abdomen. Pos BS. )
Musculoskeletal: No Clubbing, No Cyanosis and No Edema
Neuro: AO x 3
A/P: Patient is a 78y F with PMH significant for DM-II and gastroparesis who presents to ED for evaluation of abdominal pain with N/V.
Acute Pancreatitis
Transaminitis
- Admit for further evaluation and treatment.
- Patient does not drink alcohol. No recent med changes. Suspect biliary source / stones / sludge / etc that have passed.
- US: dilated CBD
-MRCP: Acute interstitial edematous pancreatitis, no MRI evidence of any pancreatic necrosis or peripancreatic fluid collection, moderate extrahepatic biliary ductal dilatation without any evidence of choledocholithiasis, mild GB sludge and
distension, enlarged 2 cm duodenal diverticulum with reactive fluid secondary to pancreatitis, mild diffuse hepatic steatosis, small HH
-Adv to LFD - tolerating last night and today
-Defer abx, improving without abx. likely reactive.
-Benefit from EUS - can be done outpatient
-May benefit from CCY - defer to Primary GI
- BM regimen
-monitor LFTs outpt
-F/u GI outpatient
DM-II
Gastroparesis
- Stable. Hold PO metformin acutely. - Can restart when cleared by GI outpt
- Follow glucose and cover with SSI as needed.
- Update A1C.�6.6
Leukocytosis
� More than likely stress related
� Continue to monitor fever curve, white count
-trending down
Hypothyroidism
- Stable. Continue current T4 replacement.
#Hypokalemia
-monitor and replete
Solid right lower lobe pulmonary nodule.
-f/u outpt
DVT Prophylaxis: HSQ
Code Status: Full
More than 30 minutes spent in discharge including
Final examination of the patient
Summarizing hospital stay
Instructions for continuing care to all relevant caregivers
Preparation of discharge records, prescriptions, and referral forms
Total time spent (36 in minutes):
Anticipated Discharge: Today
Subjective/Interval History
-
Date of Service: April 05, 2024
Tolerating diet yesterday evening and today
Objective Data
-
Labs:
Laboratory Results
04/05/24
04:56
WBC 6.0
Hgb 11.5 L
Hct 33.4 L
Plt Count 197
Sodium 137
Potassium 3.7
Chloride 103
Carbon Dioxide 26
BUN 7
Creatinine 0.5 L
Glucose 123 H
Calcium 8.7
Total Bilirubin 0.6
AST 19
ALT 14
Alkaline Phosphatase 72
Vital Signs:
Vital Signs
Temp Pulse Resp BP Pulse Ox
98.5 F 80 17 153/86 96
04/05/24 07:25 04/05/24 07:25 04/05/24 07:25 04/05/24 07:25 04/05/24 08:30
I&O
04/04/24 04/05/24 04/06/24
06:59 06:59 06:59
Intake Total 3880 / 3880 540 / 540
Balance 3880 / 3880 540 / 540
Review of Systems
-
History Source: Patient
All other systems: Not reviewed unless documented
Data Reviewed
-
CT Scan: Report Reviewed by me
Ultrasound: Report Reviewed by me
Labs: Labs Reviewed by me
--- NOTE | 2024-04-05 12:17 | W.DS.TRANS ---
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
-
Discharge Instructions:
Discharge Diagnosis/Procedures #Acute, Mild Pancreatitis (first-episode)
#Extrahepatic Biliary Ductal Dilation
#Elevated Transaminases
#Hx of Gastroparesis
Diet Low Fat,Diabetic, Carb Controlled
Activity As tolerated
Blood Work Trend LFTs outpatient
Others Tests -Would benefit from an EUS as an outpatient with
her primary Food Analyst as she is known
well to [facility] as likely biliary
pancreatitis
-May benefit from a CCY eventually, but would
defer this at this time as MRCP (-) stone/sludge
within her CBD
Instructions:
Stand-Alone Forms:
Changes to Home Medications: Yes
Discharge Medications:
DC Medications w/original date entered in [employer]
cholecalciferol (vitamin D3) 125 mcg (5,000 unit) tablet (Vitamin D3) 125 mcg PO DAILY Supplement 04/01/24
famotidine 20 mg tablet 40 mg PO DAILY Gastrointestinal Issue 04/01/24
levothyroxine 50 mcg tablet (Synthroid) 50 mcg PO DAILY Thyroid 04/01/24
metformin 500 mg tablet 500 mg PO BID Diabetes 04/01/24
therapeutic multivitamin 1 tab PO DAILY Supplement 04/01/24
acetaminophen 325 mg tablet 650 mg (2 x 325 mg) PO Q4HPRN PRN Mild Pain / Temp > 101 #0 tabs 04/04/24
polyethylene glycol 3350 17 gram oral powder packet 17 g PO DAILY #100 ea 04/04/24
sennosides 8.6 mg-docusate sodium 50 mg tablet 1 tab PO BID 30 days #60 tabs 04/04/24
Home Medication Changes
acetaminophen 325 mg tablet 650 mg (2 x 325 mg) PO Q4HPRN PRN Mild Pain / Temp > 101 #0 tabs 04/04/24
polyethylene glycol 3350 17 gram oral powder packet 17 g PO DAILY #100 ea 04/04/24
sennosides 8.6 mg-docusate sodium 50 mg tablet 1 tab PO BID 30 days #60 tabs 04/04/24
Pending Results: No
[2024-04-05 13:18] VITALS: BP 171/91
== END 2024-04-05 13:36 | disposition home or self-care (01) | DRG 440 ==
LOC: 2 SOUTH 21:17
PROVIDERS: Emergency Medicine; ADMITTING PHYSICIAN Hospitalist; ATTENDING PHYSICIAN Internal Medicine; CONSULT PHYSICIAN Student in an Organized Health Care Education/Training Program; EMERGENCY PHYSICIAN Emergency Medicine; FAMILY PHYSICIAN Family Medicine
DX: K85.90 Acute pancreatitis without necrosis or infection, unspecified (principal); E11.43 Type 2 diabetes mellitus with diabetic autonomic (poly)neuropathy; K31.84 Gastroparesis; Z79.84 Long term (current) use of oral hypoglycemic drugs; E03.9 Hypothyroidism, unspecified; D72.829 Elevated white blood cell count, unspecified; E87.6 Hypokalemia; Z85.3 Personal history of malignant neoplasm of breast; Z79.890 Hormone replacement therapy; Z96.652 Presence of left artificial knee joint; K83.8 Other specified diseases of biliary tract; R91.1 Solitary pulmonary nodule; K57.10 Diverticulosis of small intestine without perforation or abscess without bleeding; K76.0 Fatty (change of) liver, not elsewhere classified
CPT/HCPCS: 74177; 74183; 76700; 80053; 80061; 82248; 82962; 83036; 83690; 85025; 85027; 96361; 96374; 96375; 96376; 99285; A9575; Q9967